=== PATIENT | female | born 1980 | race Caucasian/White ===

== ENCOUNTER 2016-11-25 10:27 | Day surgery (SDC) | payer BC ==
[2016-11-25] VITALS (13 sets, daily range): BP systolic 96–119; BP diastolic 54–76; PULSE 56–71; RESP 15–24; Ht 160 cm; Wt 54.5 kg
[~2016-11-25] VITALS: Ht 160 cm; Wt 54.5 kg
[~2016-11-25 10:27] MED LIST: CEFAZOLIN 1 GM INJ ONE; PREN1TAB9 PO
[2016-11-25] MEDS ORDERED: LACT1CAP56 PO (10:59)
[2016-11-25] MEDS: LACTATED RINGER'S 1,000 ML IV SCH ×2 (11:30→19:30)
[2016-11-25 12:04] LABS: ADD SCAN DIFF NO
[2016-11-25 12:14] LABS: BASOPHILS % 0.3 % (0.0-2.0); EOSINOPHILS % 0.3 % (0.0-7.0); HEMATOCRIT 35.2 % (37.0-47.0); HEMOGLOBIN 11.6 g/dl (12.0-16.0); LYMPHOCYTES # 2.9 10^3/ul (0.8-2.9); LYMPHOCYTES % 43.8 % (15.0-51.0); MEAN CORPUSCULAR HEMOGLOBIN 30.9 pg (29.0-33.0); MEAN CORPUSCULAR VOLUME 93.9 fl (82.0-101.0); MONOCYTE # 0.5 10^3/ul (0.3-0.9); MONOCYTES % 7.2 % (0.0-11.0); NEUTROPHIL # 3.2 10^3/ul (1.6-7.5); NEUTROPHILS % 48.2 % (39.0-77.0); PLATELET COUNT 249 10^3/UL (140-415); RED BLOOD COUNT 3.75 10^6/ul (4.20-5.40); RED CELL DISTRIBUTION WIDTH 11.8 % (11.5-14.5); WHITE BLOOD COUNT 6.5 10^3/ul (4.8-10.8)
--- NOTE | 2016-11-25 12:16 | PREOPHP ---
DATE OF ADMISSION: 11/25/2016 HISTORY OF PRESENT ILLNESS: The patient is a 36-year-old 3, para 1, AB 1; the last menstrua l period 10/13/2016 with what should be a 6-week with an absolute date of conception of 10/25 as did not have intercourse at any other time. The patient has had her hormone levels fo llowed and they are not increasing normally. On 11/13, they were 78; on 11/19, 202; on 11/22, 360. Ult rasound yesterday showed a thickened lining, but no adnexal masses, no sac seen in the uterus, so an yway consistent with a nonviable , a missed versus possible early ectopic. Marilyn adhikari a D and C today at [facility] for a missed . Pathologist will evaluate the tiss ue. If no chorionic villi, will give the patient methotrexate. PAST MEDICAL HISTORY: Hiatal hernia. PAST SURGICAL HISTORY: Tonsillectomy, cyst removed from her wrist, and bladder reflux procedure. ALLERGIES: SULFA A CHILD AND MONISTAT GAVE HER SWELLING. MEDICATIONS: vitamins only. BLOOD TYPE: A positive. PHYSICAL EXAMINATION: GENERAL: The patient is 5 foot 2 inches, 117 pounds. HEART: Regular rate and rhythm. LUNGS: Clear to auscultation. ABDOMEN: Soft, nontender. UTERUS: 6-week size. ULTRASOUND: No sac seen. No adnexal masses. Both ovaries seen and are normal. No cul-de-sac flui ds. ASSESSMENT: Missed versus early ectopic. PLAN: D and C. If no CV per pathology, will administer methotrexate. Dictated By: ASHWINI ISABEL/JOSEP Conf#: [id number] DID#: [id number]
[2016-11-25] MEDS ORDERED: GLYCOPYRROLATE 0.4 MG INJ ONE ×2 (12:37→13:10)
[2016-11-25] MEDS ORDERED: MIDAZOLAM 1 MG/ML 2 ML INJ ONE (12:37)
[2016-11-25] MEDS ORDERED: ROCURONIUM 50 MG INJ ONE (12:37)
[2016-11-25] MEDS ORDERED: PROPOFOL 20 ML ONE (12:37)
[2016-11-25] MEDS ORDERED: FENTAnyl 50 MCG/ML VIAL ONE (12:37)
[2016-11-25] MEDS ORDERED: NEOSTIGMINE 3 MG/3 ML SYRINGE ONE (12:37)
[2016-11-25] MEDS ORDERED: LIDOCAINE 2% (SDV) 5 ML INJ ONE (12:37)
[2016-11-25] MEDS ORDERED: ONDANSETRON 4 MG INJ ONE (12:38)
[2016-11-25 12:48] LABS: ALBUMIN 4.4 g/dl (3.3-4.9); ALBUMIN/GLOBULIN RATIO 1.91; BILIRUBIN,INDIRECT 0.5 mg/dl (0-1.1); BILIRUBIN,TOTAL 0.5 mg/dl (0.2-1.3); TOTAL PROTEIN 6.7 g/dl (6.1-8.1)
[2016-11-25] MEDS ORDERED: LABETALOL HCL 20MG INJ IV PRN (13:00)
[2016-11-25] MEDS ORDERED: hydrALAzine 20 MG INJ IV PRN (13:00)
[2016-11-25] MEDS ORDERED: DIPHENHYDRAMINE 50 MG INJ IV PRN (13:00)
[2016-11-25] MEDS ORDERED: FENTAnyl 50 MCG/ML VIAL IV PRN ×2 (13:00)
[2016-11-25] MEDS ORDERED: morphine (1 MG/ML) 10ML SYRINGE IV PRN ×3 (13:00)
[2016-11-25] MEDS ORDERED: MIDAZOLAM 1 MG/ML 2 ML INJ IV PRN (13:00)
[2016-11-25] MEDS ORDERED: ATROPINE 1 MG/10 ML SYRINGE IV PRN (13:00)
[2016-11-25] MEDS ORDERED: EPHEDrine SULFATE 50 MG/5 ML SYG IV PRN (13:00)
[2016-11-25] MEDS ORDERED: OXYCODONE/ACETAMINOPHEN (5/325) TAB PO PRN ×2 (13:00)
[2016-11-25] MEDS ORDERED: MEPERIDINE 25 MG INJ IV PRN (13:00)
[2016-11-25] MEDS ORDERED: HYDROmorphONE (0.2 MG/ML) 10ML SYG IV PRN ×3 (13:00)
[2016-11-25] MEDS ORDERED: ONDANSETRON 4 MG INJ IV PRN (13:00)
[2016-11-25 13:06] LABS: CALCIUM 8.8 mg/dl (8.4-10.2); CREATININE 0.62 mg/dl (0.44-1.00); POTASSIUM 3.9 mmol/L (3.5-5.1)
[2016-11-25] MEDS ORDERED: HYDROCODONE/APAP (5/325) TAB PO ONE (16:00)
[2016-11-25] MEDS ORDERED: METHOTREXATE 50 MG INJ IM ONE (17:00)
--- NOTE | 2016-11-26 14:49 | OPR ---
DATE OF OPERATION: 11/25/2016 PREOPERATIVE DIAGNOSIS: Non-viable , missed versus ectopic. POSTOPERATIVE DIAGNOSIS: Non-viable , missed versus ectopic. OPERATION PERFORMED: Dilatation with suction and sharp curettage. SURGEON: Gordo Dunbar MD ANESTHESIOLOGIST: Dr. Lehman. ANESTHESIA: General. ESTIMATED BLOOD LOSS: 5 mL. COMPLICATIONS: None. PROCEDURE FOLLOWS: Patient was brought to the operating room, placed on the operating table and was placed under general anesthesia. Her legs were then brought up into laparoscopy stirrups, and s he was prepped and draped in the usual sterile fashion. A weighted speculum was placed into the vag inal vault and the cervix was grasped with a tenaculum. Cervix was dilated and sounded to 7 cm. A 7 mm suction curet was attached to the equipment placed at the fundus and rotated and withdrawn mul tiple times. Tissue was retrieved from the uterus. A sharp curet was then used to scrape all of th e lateral wick as well as the fundus, when the suction was performed. There was no bleeding noted at the end of the procedure. The procedure was terminated. The tenaculum was removed from the cerv ix. Weighted speculum was removed. Perineum was cleaned. Her legs were brought back down to the f ull supine position, and the patient was awakened from general anesthesia and brought to the recover y room in excellent condition. ADDENDUM: The tissue was sent to pathology for frozen section. Dr. Taveras called and stated that there was no chorionic villi so no evidence of an intrauterine in the tissue was sent. I n other words, this was consistent with an ectopic . Dictated By: GORDO ISABEL/JOSEP Conf#: [id number] DID#: [id number]
== END 2016-11-25 21:25 | disposition home or self-care (01) ==
LOC: SDS 10:27 → SUR 10:27 → MS1 18:15 → SUR 21:25
PROVIDERS: ATTEND Obstetrics & Gynecology
DX: O02.1 Missed abortion (principal)
CPT/HCPCS: 59820; 80053; 85025; J0690; J2175; J2250; J2405; J2710; J3010; J7120; J9260